=== PATIENT | female | born 1975 | race Caucasian/White ===

== ENCOUNTER 2018-12-24 09:01 | Outpatient (CLI) | payer OTHER ==
--- NOTE | 2018-12-24 09:45 | CT ---
CT Abdomen Pelvis W Con: 12/24/2018 9:03 AM CLINICAL INFORMATION: Right upper quadrant abdominal pain for a month COMPARISON: 10/12/2010 TECHNIQUE: Multiple contiguous axial images were obtained and a CT of the abdomen and pelvis with IV contrast. Oral contrast was administered. Coronal reformats were performed. FINDINGS: Lower Chest: within normal limits. Abdomen: Liver: within normal limits. Bile Ducts: Normal caliber. Gallbladder: No calcified gallstones. Normal caliber wall. Pancreas: within normal limits. Spleen: within normal limits. Adrenals: within normal limits. 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 No calculi. Pelvis: Reproductive Organs: The uterus has been removed. The ovaries are unremarkable. Ureters: within normal limits. Bladder: within normal limits. Peritoneum: No ascites or free air, no fluid collection. Bowel: Normal caliber. Normal appendix. Mesentery and Retroperitoneum: No enlarged mesenteric or retroperitoneal lymph nodes. Vessels: Normal. Abdominal Wall: within normal limits. Bones: Within normal limits IMPRESSION: 1. No evidence of acute intraabdominal\pelvic abnormality. 2. Horseshoe kidney
[2018-12-24] MEDS ORDERED: Iopamidol 370 76% 100 ML VIAL ONE (12:18)
== END 2018-12-24 09:02 | disposition home or self-care (01) ==
LOC: MADCT 09:01
PROVIDERS: ATTEND Family Medicine
DX: R10.11 Right upper quadrant pain (principal); Q63.1 Lobulated, fused and horseshoe kidney
CPT/HCPCS: 74177; Q9967

== ENCOUNTER 2020-09-24 12:24 | Outpatient (CLI) | payer BC | END 2020-09-24 12:25 | disposition home or self-care (01) | LOC: MADRAD 12:24 | PROVIDERS: ATTEND Registered Nurse | DX: M25.532 Pain in left wrist (principal) ==

== ENCOUNTER 2021-07-26 14:00 | Emergency (ER) | payer BC ==
[2021-07-26] MEDS ORDERED: Ondansetron PF 4 MG/2 ML Vial ONE (15:50)
[2021-07-26] MEDS ORDERED: Sodium Chloride 0.9% 1,000 ML ONE (15:50)
[2021-07-26 15:58] LABS: #Monocytes 0.2 thou/uL (0.11-0.59); %Basophils 0.5 % (0.0-1.0); %Lymphocytes 29.7 % (21.0-51.0); %Neutrophils 63.8 % (42.0-75.0); Hemoglobin 15.2 g/dL (12.0-16.0); Mean Corpuscular HGB CONC 31.8 g/dL (32.0-36.0); Mean Corpuscular Hemoglobin 25.8 pg (27.0-31.0); Mean Corpuscular Volume 81.1 fL (78.0-98.0); Platelet Count 175 thou/uL (130-400); RBC Distribution Width 11.3 % (11.5-14.5); Red Blood Cell (RBC) Count 5.91 mill/uL (4.20-5.40); White Blood Cell (WBC) Count 3.2 thou/uL (4.8-10.8)
[2021-07-26 16:10] LABS: ALT (SGPT) 33 U/L (8-55); AST (SGOT) 29 U/L (5-34); Albumin 4.1 g/dL (3.5-5.0); Alkaline Phosphatase 57 U/L (40-110); Anion Gap 17 mmol/L (10-20); BUN (Urea Nitrogen) 13 mg/dL (7.0-18.7); Bilirubin, Total 0.6 mg/dL (0.2-1.2); CK (CPK) 91 U/L (29-168); Calc. Creatinine Clearance 0 mL/min (70-130); Carbon Dioxide 27 mmol/L (22-29); Chloride 99 mmol/L (98-107); Globulin 3.2 g/dL (2.4-3.5); Glucose 102 mg/dL (70-105); Potassium 3.3 mmol/L (3.5-5.1); Protein, Total 7.3 g/dL (6.0-8.3); Sodium 140 mmol/L (136-145)
[2021-07-27 16:41] LABS: SARS-CoV-2 PCR by NAA DETECTED (NotDetected)
== END 2021-07-26 16:55 | disposition home or self-care (01) ==
LOC: MADERS 14:00
DX: U07.1 COVID-19 (principal); R11.2 Nausea with vomiting, unspecified
CPT/HCPCS: 71045; 80053; 82550; 84484; 85025; 87804; 96361; 96374; J2405; J7050; U0003; U0005